=== PATIENT | male | born 1955 ===

== ENCOUNTER 2017-06-29 08:44 | Day surgery (SDC) | payer BC ==
[2017-06-21 11:58] VITALS: BMI 25.8
[2017-06-29] MEDS: Lidocaine 2% Jelly (Uro-Jet) ONE ×2 (09:16→09:58)
[2017-06-29] MEDS: Gentamicin 160 MG in Sodium Chloride 0.9% 100 ML IVPB ONE ×2 (09:17→09:56)
[2017-06-29] MEDS: cefTRIAXone IV 1 gm in Dextros 50 ML IVPB ONE ×2 (09:17→10:05)
[2017-06-29] MEDS ORDERED: Midazolam 2 MG/2 ML VIAL ONE (09:55)
[2017-06-29] MEDS ORDERED: Propofol 10 mg/ml Inj (20 ML) ONE (10:01)
[2017-06-29] MEDS ORDERED: Morphine 4 MG/ML VIAL ONE (10:06)
[2017-06-29] MEDS ORDERED: Lidocaine 2% Jelly (Uro-Jet) ONE (10:12)
[2017-06-29] MEDS ORDERED: Lactated Ringer's 1,000 ML IV ONE (11:30)
[2017-06-29 11:48] VITALS: TEMP 97.4
[2017-06-29 12:16] VITALS: RESP 16
[2017-06-29 15:07] VITALS: BP 136/59; PULSE 59; O2SAT 98
--- NOTE | 2017-06-29 21:44 | OP ---
PROCEDURE DATE: 06/29/2017 PREOPERATIVE DIAGNOSIS: Elevated prostate-specific antigen 5.8. POSTOPERATIVE DIAGNOSIS: Elevated prostate-specific antigen 5.8. PROCEDURE: Transrectal ultrasound diagnostic, transrectal ultrasound guidance and prosthetic biopsy. SURGEON: Rene Thomas MD. DESCRIPTION OF PROCEDURE: The patient was interviewed in the holding area and confirmed to me with his in attendance, that he has not taken any aspirin or NSAIDs for over a week. He was told to take it easy for a few days and specifically that in the unlikely event he gets very high fever or chills, to call me immediately and if there is no immediate response, go right to the emergency room. The patient was brought to the operating room, he was placed in lithotomy position under anesthesia, prepped and draped in the usual fashion, 1 gm of Rocephin and 160 mg of gentamicin were administered intravenously. The rectum was cleansed with Betadine. We now introduced the transducer, the prostate was scanned. There were no calcifications or specific hypoechoic lesions noted. The total volume was 51.9 cm. We now began prostatic biopsies by dividing the prostate into 6 sextants. After the second sextant was biopsied, we noticed that there was some oozing of what apparently is a remnant of his fudger enema coming out of the rectum. I removed the probe and a few ounces of liquid came out. I reexamined the prostate digitally and the prostatic vault was empty. There was no stool or unusual amount of liquid remaining. We now reprepped the rectum by squeezing an additional Betadine into the rectum and then we removed the condom from the probe and put in a new condom and biopsy guide as well as using a new biopsy needle. We introduced the probe and completed the biopsy and the standard procedure. After biopsy, we maintained pressure for 5 minutes as it is usual to promote hemostasis. Upon removal of the probe, there was no unusual bleeding and no further emanation of any liquid from the rectum. The patient tolerated the procedure well. Rene Thomas MD
== END 2017-06-29 15:02 | disposition home or self-care (01) ==
LOC: C.SDS 08:44
PROVIDERS: ATTEND Urology
DX: R97.20 Elevated prostate specific antigen [PSA] (principal); I10 Essential (primary) hypertension
CPT/HCPCS: 55700; 88305; 88342; J0696; J1580; J7120